=== PATIENT | male | born 1980 | race Caucasian/White ===

== ENCOUNTER 2018-03-20 12:51 | Inpatient (IN) | payer OTHER, MEDICAID ==
[2018-03-20 14:08] LABS: ABNORMAL IP MESSAGE 1; HEMATOCRIT 49.4 % (42.0-52.0); HEMOGLOBIN 16.2 g/dl (14.0-18.0); MEAN CORPUSCULAR HGB CONC 32.8 g/dl (32.0-37.0); MEAN CORPUSCULAR VOLUME 85.3 fl (82.0-101.0); MEAN PLATELET VOLUME 10.1 fl (7.4-10.4); PLATELET COUNT 469 10^3/UL (140-415); POSITIVE DIFF @See below; RED BLOOD COUNT 5.79 10^6/ul (4.70-6.10); RED CELL DISTRIBUTION WIDTH 14.1 % (11.5-14.5)
[2018-03-20 14:08] LABS: WHITE BLOOD COUNT 30.4 10^3/ul (4.8-10.8)
[2018-03-20 14:10] LABS: ADD MAN DIFF? YES
[2018-03-20 14:24] LABS: ALANINE AMINOTRANSFERASE 76 IU/L (13-69); ALBUMIN 4.4 g/dl (3.3-4.9); ALBUMIN/GLOBULIN RATIO 1.41; ALKALINE PHOSPHATASE 103 IU/L (42-121); ANION GAP 27 (5-13); ASPARTATE AMINO TRANSFERASE 187 IU/L (15-46); BILIRUBIN,INDIRECT 0.2 mg/dl (0-1.1); BILIRUBIN,TOTAL 0.2 mg/dl (0.2-1.3); BLOOD UREA NITROGEN 81 mg/dl (7-20); CALCIUM 9.1 mg/dl (8.4-10.2); CARBON DIOXIDE 14 mmol/L (21-31); CHLORIDE 96 mmol/L (97-110); CREATININE 2.67 mg/dl (0.61-1.24); Estimated GFR 27 mL/min (>60); GLUCOSE 88 mg/dl (70-220); POTASSIUM 4.8 mmol/L (3.5-5.1); SODIUM 137 mmol/L (135-144); TOTAL PROTEIN 7.5 g/dl (6.1-8.1)
[2018-03-20 15:45] LABS: ANISOCYTOSIS 1+ (0-0); BAND NEUTROPHILS #M 1.2 10^3/ul (0.0-0.6); BAND NEUTROPHILS % (M) 4 % (0-4); LYMPHOCYTES #M 0.6 10^3/ul (0.8-2.9); LYMPHOCYTES % (M) 2 % (15-51); MICROCYTOSIS 1+ (0-0); MONOCYTE #M 0.9 10^3/ul (0.3-0.9); MONOCYTES % (M) 3 % (0-11); MYELOCYTES #M 0.6 10^3/ul (0.0-0.0); MYELOCYTES % (M) 2 % (0-0); PLATELET ESTIMATE INCREASED; SEG NEUT #M 27.4 10^3/ul (1.6-7.5); SEGMENTED NEUTROPHILS (M) % 89 % (39-77); SMUDGE%M 2 % (0-0)
[2018-03-20 17:13] LABS: INR 0.93; PROTIME 12.6 Sec (11.9-14.9)
[2018-03-20 17:14] LABS: PARTIAL THROMBOPLASTIN TIME 28.6 Sec (23.0-35.0)
[2018-03-20 17:27] LABS: TROPONIN-I 0.025 ng/ml (0.000-0.120)
[2018-03-20] MEDS: CEFTRIAXONE 2 GM/50 ML (PMX) 50 ML IVPB (17:41)
[2018-03-20 17:59] LABS: ADD UMIC YES; UR ASCORBIC ACID NEGATIVE (NEGATIVE); UR BILIRUBIN (Dip) NEGATIVE (NEGATIVE); UR BLOOD (Dip) 3+ mg/dL (NEGATIVE); UR CLARITY CLEAR (CLEAR); UR COLOR STRAW (YELLOW); UR GLUCOSE (Dip) NEGATIVE (NEGATIVE); UR KETONES (Dip) 2+ mg/dL (NEGATIVE); UR LEUKOCYTE ESTERASE (Dip) NEGATIVE Leu/ul (NEGATIVE); UR NITRITE (Dip) NEGATIVE (NEGATIVE); UR RBC 0 /HPF (0-5); UR SPECIFIC GRAVITY (Dip) 1.012 (1.003-1.030); UR TOTAL PROTEIN (Dip) 2+ mg/dl (NEGATIVE); UR UROBILINOGEN (Dip) NEGATIVE (NEGATIVE); UR WBC 0 /HPF (0-5)
[2018-03-20 18:19] LABS: AMPHETAMINE/METHAMPHETAMINE Negative (NEGATIVE); BARBITURATES Negative (NEGATIVE); BENZODIAZEPINES Negative (NEGATIVE); CANNABINOIDS Negative (NEGATIVE); COCAINE Negative (NEGATIVE); OPIATES Negative (NEGATIVE)
[2018-03-20 18:26] LABS: ETHANOL < 10.0 mg/dl (0-0)
[2018-03-20] MEDS: VANCOMYCIN 1 GM (PMX) 250 ML IVPB (18:43)
[2018-03-20 19:50] LABS: CSF RBC 0 /uL (0-0); CSF WBC 4 /cmm (0-10)
[2018-03-20 19:52] LABS: CSF RBC 0 /uL (0-0); CSF WBC 2 /cmm (0-10)
[2018-03-20 19:57] LABS: CSF COLOR COLORLESS; GLUCOSE,CSF 73 mg/dl (50-80)
[2018-03-20 19:57] LABS: CSF CLARITY CLEAR; CSF VOLUME 6.5 ml; TOTAL PROTEIN,CSF 56 mg/dl (12-60)
[2018-03-20 19:58] LABS: CSF#TUBE COUNT TUBE#4; CSF#TUBES REC'D 4
[2018-03-20 19:59] LABS: CSF CLARITY CLEAR; CSF COLOR COLORLESS; CSF VOLUME 6.5 ml; CSF#TUBE COUNT TUBE#1; CSF#TUBES REC'D 4
[2018-03-20 21:11] LABS: LACTIC ACID 1.1 mmol/L (0.5-2.0)
[2018-03-21] MEDS ORDERED: ALBUTEROL/IPRATROPIUM (NEB) 3 ML AMP HHN
[2018-03-21] MEDS ORDERED: ONDANSETRON 4 MG INJ IV
[2018-03-21] MEDS ORDERED: NACL 0.9% 3 ML SYG IV
[2018-03-21] MEDS: DEXTROSE 5%-0.45% NACL 1,000 ML IV (00:41)
[2018-03-21] MEDS: QUETIAPINE 100 MG TAB PO ×2 (05:30→21:46)
[2018-03-21 06:06] LABS: ADD MAN DIFF? NO
[2018-03-21 06:14] LABS: WHITE BLOOD COUNT 21.6 10^3/ul (4.8-10.8)
[2018-03-21 06:14] LABS: ABNORMAL IP MESSAGE 1; BASOPHILS % 0.1 % (0.0-2.0); HEMATOCRIT 45.6 % (42.0-52.0); HEMOGLOBIN 15.3 g/dl (14.0-18.0); LYMPHOCYTES # 0.9 10^3/ul (0.8-2.9); MEAN CORPUSCULAR HEMOGLOBIN 28.2 pg (29.0-33.0); MEAN CORPUSCULAR HGB CONC 33.6 g/dl (32.0-37.0); MEAN PLATELET VOLUME 10.1 fl (7.4-10.4); MONOCYTE # 1.9 10^3/ul (0.3-0.9); MONOCYTES % 8.7 % (0.0-11.0); NEUTROPHIL # 18.6 10^3/ul (1.6-7.5); NEUTROPHILS % 86.5 % (39.0-77.0); PLATELET COUNT 431 10^3/UL (140-415); POSITIVE DIFF @See below; RED BLOOD COUNT 5.43 10^6/ul (4.70-6.10); RED CELL DISTRIBUTION WIDTH 14.5 % (11.5-14.5)
[2018-03-21 06:21] LABS: HEMOGLOBIN A1C 5.3 % (0-5.9)
[2018-03-21] MEDS ORDERED: VANCOMYCIN IV PER PHARMACY XX (06:30)
[2018-03-21 06:35] LABS: AMMONIA 16 umol/l (9-30)
[2018-03-21 06:49] LABS: ALANINE AMINOTRANSFERASE 68 IU/L (13-69); ALBUMIN 3.5 g/dl (3.3-4.9); ALKALINE PHOSPHATASE 75 IU/L (42-121); ANION GAP 21 (5-13); ASPARTATE AMINO TRANSFERASE 101 IU/L (15-46); BILIRUBIN,INDIRECT 0.1 mg/dl (0-1.1); BILIRUBIN,TOTAL 0.1 mg/dl (0.2-1.3); BLOOD UREA NITROGEN 69 mg/dl (7-20); CALCIUM 7.9 mg/dl (8.4-10.2); CARBON DIOXIDE 15 mmol/L (21-31); CHLORIDE 106 mmol/L (97-110); CHOL/HDL RATIO 4.1 RATIO; CHOLESTEROL 200 mg/dl (100-200); CREATININE 2.23 mg/dl (0.61-1.24); Estimated GFR 33 mL/min (>60); GLUCOSE 162 mg/dl (70-220); HDL CHOLESTEROL 48 mg/dl (27-67); LDL CHOLESTEROL,CALCULATED 122 mg/dl; MAGNESIUM 2.7 mg/dl (1.7-2.5); POTASSIUM 4.1 mmol/L (3.5-5.1); SODIUM 142 mmol/L (135-144); TOTAL PROTEIN 6.4 g/dl (6.1-8.1); TRIGLYCERIDES 150 mg/dl (0-149)
[2018-03-21] MEDS: SOD CHLORIDE 0.9% 1,000 ML IV ×3 (07:02→21:47)
[2018-03-21 07:06] LABS: HEPATITIS B SURFACE ANTIGEN NEGATIVE (NEGATIVE)
[2018-03-21 07:08] LABS: THYROID STIMULATING HORMONE 0.415 MIU/L (0.465-4.680)
[2018-03-21 07:24] LABS: HEPATITIS C VIRAL ANTIBODY NEGATIVE (NEGATIVE)
[2018-03-21 08:18] LABS: HEPATITIS B SURFACE ANTIBODY NEGATIVE (NEGATIVE)
[2018-03-21] MEDS: CEFEPIME 1GM/50 ML (PMX) 50 ML IVPB ×2 (08:21→21:46)
[2018-03-21] MEDS: HEPARIN 5,000 UNIT/1 ML VIAL SC ×2 (08:27→21:55)
[2018-03-21 14:53] LABS: ADD UMIC YES; UR ASCORBIC ACID NEGATIVE (NEGATIVE); UR BACTERIA FEW /HPF (NONE SEEN); UR BILIRUBIN (Dip) NEGATIVE (NEGATIVE); UR BLOOD (Dip) 2+ mg/dL (NEGATIVE); UR CLARITY CLEAR (CLEAR); UR COLOR STRAW (YELLOW); UR GLUCOSE (Dip) NEGATIVE (NEGATIVE); UR KETONES (Dip) 1+ mg/dL (NEGATIVE); UR LEUKOCYTE ESTERASE (Dip) NEGATIVE Leu/ul (NEGATIVE); UR NITRITE (Dip) NEGATIVE (NEGATIVE); UR RBC 0 /HPF (0-5); UR SPECIFIC GRAVITY (Dip) 1.013 (1.003-1.030); UR TOTAL PROTEIN (Dip) 2+ mg/dl (NEGATIVE); UR UROBILINOGEN (Dip) NEGATIVE (NEGATIVE); UR WBC 0 /HPF (0-5)
[2018-03-21 15:15] LABS: CREATININE,URINE RANDOM 51.16 mg/dl (20-370)
[2018-03-21 15:37] LABS: SODIUM,URINE RANDOM 17 mmol/L (30-90)
[2018-03-21 15:37] LABS: POTASSIUM,URINE RANDOM 27.3 mmol/L (25-125)
[2018-03-21] MEDS: VANCOMYCIN 1 GM 250 ML IVPB (18:04)
[2018-03-22] MEDS: SOD CHLORIDE 0.9% 1,000 ML IV ×2 (06:14→08:30)
[2018-03-22 06:50] LABS: ADD MAN DIFF? NO
[2018-03-22 06:56] LABS: BASOPHILS % 0.3 % (0.0-2.0); EOSINOPHILS % 0.1 % (0.0-7.0); HEMATOCRIT 41.3 % (42.0-52.0); HEMOGLOBIN 13.7 g/dl (14.0-18.0); LYMPHOCYTES # 1.7 10^3/ul (0.8-2.9); LYMPHOCYTES % 13.4 % (15.0-51.0); MEAN CORPUSCULAR HEMOGLOBIN 27.9 pg (29.0-33.0); MEAN CORPUSCULAR HGB CONC 33.2 g/dl (32.0-37.0); MEAN CORPUSCULAR VOLUME 84.1 fl (82.0-101.0); MEAN PLATELET VOLUME 9.9 fl (7.4-10.4); MONOCYTE # 1.3 10^3/ul (0.3-0.9); MONOCYTES % 10.1 % (0.0-11.0); NEUTROPHIL # 9.3 10^3/ul (1.6-7.5); NEUTROPHILS % 75.6 % (39.0-77.0); PLATELET COUNT 310 10^3/UL (140-415); RED BLOOD COUNT 4.91 10^6/ul (4.70-6.10); RED CELL DISTRIBUTION WIDTH 14.4 % (11.5-14.5)
[2018-03-22 06:56] LABS: WHITE BLOOD COUNT 12.4 10^3/ul (4.8-10.8)
[2018-03-22 07:17] LABS: ANION GAP 7 (5-13); BLOOD UREA NITROGEN 32 mg/dl (7-20); CALCIUM 7.9 mg/dl (8.4-10.2); CARBON DIOXIDE 23 mmol/L (21-31); CHLORIDE 108 mmol/L (97-110); Estimated GFR 56 mL/min (>60); GLUCOSE 107 mg/dl (70-220); MAGNESIUM 2.2 mg/dl (1.7-2.5); PHOSPHORUS 2.1 mg/dl (2.5-4.9); POTASSIUM 3.1 mmol/L (3.5-5.1); SODIUM 138 mmol/L (135-144)
[2018-03-22] MEDS: POTASSIUM CHLORIDE (SR) 20 MEQ TAB PO (08:29)
[2018-03-22] MEDS: CEFEPIME 1GM/50 ML (PMX) 50 ML IVPB ×2 (08:29→20:11)
[2018-03-22] MEDS: NEUTRA-PHOS 250 MG PACKET PO (08:37)
[2018-03-22] MEDS: HEPARIN 5,000 UNIT/1 ML VIAL SC ×2 (08:47→20:19)
[2018-03-22] MEDS: INFLUENZA VIRUS VACCINE 0.5 ML (DISPENSING) IM* (11:05)
[2018-03-22 14:22] LABS: CREATININE, RANDOM URINE 52 mg/dL (20-320); MICROALBUMIN 27.1 mg/dL; MICROALBUMIN/CREATININE RATIO 521 (<30)
[2018-03-22] MEDS ORDERED: VANCOMYCIN 1 GM 250 ML IVPB (15:00)
[2018-03-22] MEDS: VANCOMYCIN 750 MG (PMX) 250 ML IVPB (16:19)
[2018-03-22 18:11] LABS: HERPES SIMPLEX 1 DNA NOT DETECTED; HERPES SIMPLEX 2 DNA NOT DETECTED; HERPES SIMPLEX PCR SOURCE CEREBROSPINAL FLUID
[2018-03-22] MEDS: QUETIAPINE 100 MG TAB PO (20:11)
[2018-03-23] MEDS: VANCOMYCIN 750 MG (PMX) 250 ML IVPB ×2 (04:09→16:08)
[2018-03-23 06:02] LABS: ADD MAN DIFF? NO
[2018-03-23 06:11] LABS: WHITE BLOOD COUNT 10.8 10^3/ul (4.8-10.8)
[2018-03-23 06:11] LABS: BASOPHIL # 0.1 10^3/ul (0.0-0.1); BASOPHILS % 0.6 % (0.0-2.0); EOSINOPHILS % 0.2 % (0.0-7.0); HEMATOCRIT 45.3 % (42.0-52.0); LYMPHOCYTES # 1.9 10^3/ul (0.8-2.9); LYMPHOCYTES % 17.1 % (15.0-51.0); MEAN CORPUSCULAR HEMOGLOBIN 27.9 pg (29.0-33.0); MEAN CORPUSCULAR HGB CONC 33.1 g/dl (32.0-37.0); MEAN CORPUSCULAR VOLUME 84.2 fl (82.0-101.0); MEAN PLATELET VOLUME 10.2 fl (7.4-10.4); MONOCYTE # 1.5 10^3/ul (0.3-0.9); MONOCYTES % 13.6 % (0.0-11.0); NEUTROPHIL # 7.4 10^3/ul (1.6-7.5); PLATELET COUNT 315 10^3/UL (140-415); RED BLOOD COUNT 5.38 10^6/ul (4.70-6.10); RED CELL DISTRIBUTION WIDTH 14.2 % (11.5-14.5)
[2018-03-23 06:30] LABS: ANION GAP 8 (5-13); BLOOD UREA NITROGEN 19 mg/dl (7-20); CALCIUM 8.3 mg/dl (8.4-10.2); CARBON DIOXIDE 26 mmol/L (21-31); CHLORIDE 104 mmol/L (97-110); CREATININE 1.21 mg/dl (0.61-1.24); Estimated GFR > 60 mL/min (>60); GLUCOSE 112 mg/dl (70-220); MAGNESIUM 1.9 mg/dl (1.7-2.5); PHOSPHORUS 1.7 mg/dl (2.5-4.9); SODIUM 138 mmol/L (135-144)
[2018-03-23] MEDS: CEFEPIME 1GM/50 ML (PMX) 50 ML IVPB ×2 (09:13→22:24)
[2018-03-23] MEDS: POTASSIUM CHLORIDE (SR) 20 MEQ TAB PO (09:13)
[2018-03-23] MEDS: HEPARIN 5,000 UNIT/1 ML VIAL SC ×2 (09:27→20:41)
[2018-03-23] MEDS: NEUTRA-PHOS 250 MG PACKET PO (10:45)
[2018-03-23] MEDS: QUETIAPINE 100 MG TAB PO (20:37)
[2018-03-24 04:03] LABS: ADD MAN DIFF? NO
[2018-03-24 04:05] LABS: BASOPHIL # 0.1 10^3/ul (0.0-0.1); BASOPHILS % 0.8 % (0.0-2.0); EOSINOPHILS # 0.1 10^3/ul (0.0-0.5); EOSINOPHILS % 1.2 % (0.0-7.0); HEMATOCRIT 50.1 % (42.0-52.0); HEMOGLOBIN 16.6 g/dl (14.0-18.0); LYMPHOCYTES % 18.4 % (15.0-51.0); MEAN CORPUSCULAR HEMOGLOBIN 27.8 pg (29.0-33.0); MEAN CORPUSCULAR HGB CONC 33.1 g/dl (32.0-37.0); MEAN CORPUSCULAR VOLUME 83.8 fl (82.0-101.0); MEAN PLATELET VOLUME 10.3 fl (7.4-10.4); MONOCYTE # 1.4 10^3/ul (0.3-0.9); MONOCYTES % 12.5 % (0.0-11.0); NEUTROPHIL # 7.3 10^3/ul (1.6-7.5); NEUTROPHILS % 66.5 % (39.0-77.0); PLATELET COUNT 349 10^3/UL (140-415); RED BLOOD COUNT 5.98 10^6/ul (4.70-6.10); RED CELL DISTRIBUTION WIDTH 13.8 % (11.5-14.5)
[2018-03-24 04:08] LABS: ANION GAP 10 (5-13); BLOOD UREA NITROGEN 20 mg/dl (7-20); CARBON DIOXIDE 23 mmol/L (21-31); CHLORIDE 105 mmol/L (97-110); CREATININE 1.33 mg/dl (0.61-1.24); Estimated GFR 60 mL/min (>60); GLUCOSE 134 mg/dl (70-220); MAGNESIUM 1.8 mg/dl (1.7-2.5); PHOSPHORUS 2.1 mg/dl (2.5-4.9); POTASSIUM 3.2 mmol/L (3.5-5.1); SODIUM 138 mmol/L (135-144)
[2018-03-24 04:13] LABS: VANCOMYCIN,TROUGH 13.5 ug/ml (10.0-20.0)
[2018-03-24] MEDS: VANCOMYCIN 750 MG (PMX) 250 ML IVPB (05:30)
[2018-03-24] MEDS: POTASSIUM CHLORIDE (SR) 10 MEQ TAB PO (08:34)
[2018-03-24] MEDS: HEPARIN 5,000 UNIT/1 ML VIAL SC ×2 (08:35→20:38)
[2018-03-24] MEDS: QUETIAPINE 100 MG TAB PO (20:37)
[2018-03-25] MEDS: ACETAMINOPHEN 325 MG TAB PO ×2 (07:52→20:51)
[2018-03-25] MEDS: HEPARIN 5,000 UNIT/1 ML VIAL SC ×2 (09:09→20:51)
[2018-03-25] MEDS: QUETIAPINE 100 MG TAB PO (20:49)
[2018-03-26] MEDS: HEPARIN 5,000 UNIT/1 ML VIAL SC (08:09)
== END 2018-03-26 15:45 | disposition home or self-care (01) | DRG 872 ==
LOC: FTE 12:51 → TEL 03-22 08:47 → 5EC 03-23 16:55 → TEL 19:06
PROC: 009U3ZX Drainage of Spinal Canal, Percutaneous Approach, Diagnostic (ICD-10-PCS; principal; 2018-03-20)
PROC: 3E0234Z Introduction of Serum, Toxoid and Vaccine into Muscle, Percutaneous Approach (ICD-10-PCS; 2018-03-22)
DX: A41.9 Sepsis, unspecified organism (principal); K92.0 Hematemesis; N17.9 Acute kidney failure, unspecified; E87.2 Acidosis; G93.40 Encephalopathy, unspecified; F20.9 Schizophrenia, unspecified; N18.9 Chronic kidney disease, unspecified; E87.6 Hypokalemia; R74.0 Nonspecific elevation of levels of transaminase and lactic acid dehydrogenase [LDH]; Z59.0 Homelessness; R51 Headache; R30.0 Dysuria; Z23 Encounter for immunization
CPT/HCPCS: 36415; 70450; 71045; 76700; 80048; 80053; 80061; 80202; 80307; 81001; 81003; 82043; 82140; 82436; 82945; 83036; 83605; 83735; 84100; 84133; 84155; 84157; 84300; 84443; 84484; 85025; 85610; 85730; 86706; 86803; 87040; 87070; 87086; 87340; 87529; 89051; 90686; 92610; 93005; 96374; 96375; 97116; 97161; 97530; 99291-25